=== PATIENT | female | born 1995 | race African-American/Black ===

== ENCOUNTER 2025-02-20 20:11 | Emergency (ER) | payer OTHER, SELFPAY ==
[2025-02-20 20:35] VITALS: BP 119/66; PULSE 65; RESP 16; TEMP 36.2; O2SAT 100
[2025-02-20 21:18] LABS: Influenza A QL RT-PCR Negative (Negative); Influenza B QL RT-PCR Negative (Negative); RSV RNA, RT-PCR Negative (Negative); SARS-CoV-2 RNA PCR Negative (Negative)
[2025-02-20 21:41] VITALS: BP 125/68; PULSE 73; RESP 16; TEMP 36.7; O2SAT 100
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
--- OUTSIDE RECORDS SUMMARY | 2025-02-20 23:18 | XMS_ITS | Referral Summary ---
Author Organization [facility] [address] Address [address] [place] [address] Phone Care Team Providers Care Extruder Operator Name Role Phone Rossy Ley MD Unavailable Rossy Ley MD Primary Care Provide r Allergies No known active allergies Medications sulfamethoxazol e-trimethoprim (BACTRIM DS) 800-160 mg per tablet Take one tablet twice daily for 3 days 6 tablet 3 Active Additional Information Patient not taking.Reported on 02/17/2024 valACYclovir (VALTREX) 500 mg tablet Take 1 tablet (500 mg) by mouth twice daily for 3 days. 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 Overview (02/28/2017): Premature adrenarche Medical examinations/reports status 04/09/2013 Overview (02/28/2017): Health care maintenance Pneumonia 04/09/2013 Overview (02/28/2017): Pneumonia Myopia 06/13/2009 Overview (02/28/2017): Myopia Chest wall pain 09/22/2008 Overview (02/28/2017): Chest wall pain Immunizations Immunization Administration Dates Next Due DTP 03/14/1999, 8,04/12/1998,02/17 DTaP 12/24/2002, 9,06/14/1998,04/12,02/17/1998 HPV, Quadrivalent 12/29/2012,08/25/2012,06/24/20 12 Hep B, Adolescent or Pediatric 06/14/1998,1997,1997 HiB 06/14/1998,04/12/1998,02/17/1998 Hib (HbOC) 03/14/1999, 8,04/12/1998,02/17 IPV 12/24/2002, 9,04/12/1998,02/17 MMR 12/24/2002,12/20/1998 Meningococcal MCV4P (Menactra) 04/26/2015 Meningococcal Polysaccharide (Menomune) 09/03/2011 OPV 03/14/1999,04/12/1998,02/17/1998 Tdap 06/13/2009 Varicella 04/26/2015,12/20/1998 Social History Tobacco Use Types Packs/Day Years Used Date Smoking Tobacco: Never Smokeless Tobacco: Never Alcohol Use Standard Drinks/Week Comments No 0 (1 standard drink = 0.6 oz pur e alcohol) Comments No Sex and Gender Information Value Date Recorded Sex Assigned at Not on file Legal Sex Female 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 Gender Identity Female 02/08/2021 10:56 AM CDT Sexual Orientation Straight 02/08/2021 10 :56 AM CDT Occupation Industry Job Start Date Job End Date [place] Not on file Not on file Not on file Last Filed Vital Signs Vital Sign Reading Time Taken Comments Blood Pressure 118/72 07/12/2024 4:00 PM CDT Pulse 84 07/12/2024 4:00 PM CDT Temperature 37.1 C (98.8 F) 07/12/2024 4:00 PM CDT Respiratory Rate 18 07/12/2024 4:00 PM CDT Oxygen Saturation 98% 07/12/2024 4:00 PM CDT Inhaled Oxygen Concentration - - Weight 58.1 kg (128 lb) 07/12/2024 4:00 PM CDT Height 154.9 cm (5' 0.98 ) 04/08/2024 7:35 PM CD T Body Mass Index 24.2 04/08/2024 7:35 PM CDT Plan of Treatment Not on file Procedures Procedure Name Priority Date/Time Associated Diagnosis Comments PAP WITH REFLEX TO HIGH RISK HPV Routine 02/09/2022 11:01 AM CDT Screening for malignant neoplasm of the cervix from Last 3 Months or Most Recently Relevant to Health Maintenance Results * Pap with reflex to High Risk HPV (02/09/2022 11:01 AM CDT) Thin prep (Pap test) 02/09/2022 11:01 AM CDT 02/09/2022 11:01 AM CDT Narrative PATHOLOGY CH - 02/14/2022 2:49 PM CDT [facility] Department of Pathology [address] [place] [id number] Final Report Note to Patients: This report may contain a detailed description of human tissue sent by a health care provider to the laboratory for pathologic evaluation. The content of this report is essential for diagnosis and may provide important critical findings. This information may be unfamiliar to patients to review without a medical professional present. It is advised that the patient review this report in the presence of a health care provider who can answer questions and explain the details. Patient Name: AYE GARCIA Address: [address] [place] [address] Gender: F : 1995 (Age: 26) Service: Laboratory Location: Lab [facility] #: [id number] Patient Type: Aram Lab Taken: 02/09/2022 Received: 02/09/2022 Accessioned:: 02/12/2022 Reported: 02/14/2022 Physician(s): JORDAN Clark WHNP Diagnosis: Source of Specimen: Imaged Thinprep Pap Test w/ Reflex HPV - Lifeguard Cytologic Material Specimen Adequacy: - Satisfactory for evaluation; endocervical/transformation zone component present General Category: - Negative for intraepithelial lesion or malignancy Interpretation/Results: - Reactive/reparative cell changes LETI Horowitz(ASCP) Guerita Dean M.D. Report Electronically Reviewed and Signed Out By Guerita Dean M.D. 02/14/2022 14:49:59 Specimen(s) Received: A: Imaged Thinprep Pap Test w/ Reflex HPV - Lifeguard Cytologic Material Clinical History: Last Menstrual Period: 01/15/22 The Pap test is a screening test used to aid in the detection of cervical cancer and its precursors. It should not be the sole means by which malignant and premalignant lesions are diagnosed. Both false negative and false positive results may occur. It also has poor sensitivity for the detection of endometrial lesions and should not be used to evaluate suspected endometrial abnormalities. For these reasons it is most important to obtain Pap tests at regular intervals. The performance characteristics of some immunohistochemical stains, fluorescence in-situ hybridization tests and immunophenotyping by flow cytometry cited in this report (if any) were determined by the Surgical Pathology Department at [facility] as part of an ongoing senior quality control inspector program and in compliance with federally mandated regulations drawn from the Clinical Laboratory Improvement Act of 1988 (CLIA '88). Some of these tests rely on the use of analyte specific reagents and are subject to specific labeling requirements by the US Food and Drug Administration. Such diagnostic tests may only be performed in a facility that is certified by the Department of Health and Human Services as a high complexity laboratory under CLIA '88. The FDA has determined that such clearance or approval is not necessary. This test is used for clinical purposes. It should not be regarded as investigational or for research. Nevertheless, federal rules concerning the medical use of analyte specific reagents require that the following disclaimer be attached to the report: This test was developed and its performance characteristics determined by the Surgical Pathology Department [facility]. It has not been cleared or approved by the U. S. Food and Drug Administration. Angie Torres NP LAB CYTOLOGY ORDERABLES F inal Result PATHOLOGY [address] [place] [address] from Last 3 Months or Most Recently Relevant to Health Maintenance Insurance [employer] ACCESS [facility] CHOICE PLUS Care Teams Extruder Operator Relationship Specialty Start Date End Date Rossy Ley MD [address] [place] [address] PCP - General 06/07/18 Rossy Ley MD [address] [place] [address] Pit Steward Obstetrics and Gynecology 10/23/17
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
--- NOTE | 2025-02-21 00:53 | ED_ITS ---
HPI - Fever General Chief Complaint: Fever Stated Complaint: Fever, Vomiting, headache, chills Time Seen by Provider: 02/20/25 22:47 Source: patient Mode of arrival: ambulatory Limitations: no limitations History of Present Illness HPI Narrative: Patient is a 29-year-old female who presents the ED with report of headache, nausea, vomiting. Patient reports she began having nausea and headache on Saturday night. Symptoms have persisted over the last several days. She had multiple episodes of vomiting today, which prompted her presentation. She has remote history of migraines, states she has a migraine every couple weeks. Has not taken anything for pain today. Has never been hospitalized for migraines before. Endorses photophobia, phonophobia. Reported having a couple of days of a cough last week, but states this has since resolved. Reported low-grade fevers this morning. Reports some intermittent pain throughout her upper abdomen. Denies sick contacts. Related Data Allergies Allergy/AdvReac Type Severity Reaction Status Date / Time No Known Allergies Allergy Verified 02/20/25 21:42 Review of Systems 2 Review of Systems: All systems reviewed & are unremarkable except as noted in HPI. All systems reviewed & are unremarkable except as noted in HPI and below Exam 2 Narrative: GENERAL: Well appearing, well-nourished, non-toxic, in no acute distress. HEAD: Normocephalic, atraumatic. EYES: PERRL/EOMI, conjunctiva clear. No nystagmus. NECK: No meningeal signs. RESPIRATORY: Airway patent, respirations nonlabored. Clear to auscultation bilaterally, no rales, rhonchi, wheezing. CARDIOVASCULAR: Regular rate and rhythm without murmurs, rubs, or gallops. ABDOMINAL: Soft, very mild TTP in epigastric region, nondistended. Normoactive BS. MUSCULOSKELETAL: Moves all extremities. No gross deformities. SKIN: Warm, dry, normal color. NEURO: A&O X3. Speech clear. Cranial nerves II-XII grossly intact. Steady gait. No ataxic movements. No focal deficits. PSYCHIATRIC: Appropriate mood and affect. Normal interaction. Course Vital Signs Vital signs: Vital Signs Temperature 97.1 F L 02/20/25 20:35 Pulse Rate 65 02/20/25 20:35 Respiratory Rate 16 02/20/25 20:35 Blood Pressure 119/66 02/20/25 20:35 Pulse Oximetry 100 03/29/25 20:35 Oxygen Delivery Room Air 02/20/25 20:35 Temperature 98.1 F 02/20/25 21:41 Pulse Rate 75 02/21/25 02:16 Respiratory Rate 16 02/21/25 02:16 Blood Pressure 111/75 02/21/25 02:16 Pulse Oximetry 97 02/21/25 02:16 Oxygen Delivery Room Air 02/20/25 20:35 MDM - Fever MDM Narrative Medical decision making narrative: Presented to ED with several day history of nausea, vomiting, headache. History of migraines. Vital signs are stable upon arrival. Patient is in no acute distress. Afebrile here. Has not taken any antipyretics today. Did report fever this morning. Neurologically intact. Patient's headache was not sudden in onset or maximal in severity. There are no focal neurological deficits on exam. Subarachnoid hemorrhage is felt to be unlikely at this time. Neck is supple on evaluation without meningeal signs. Meningitis is felt to be unlikely. No traumatic history or signs of trauma on evaluation. No vision changes or ocular signs of acute glaucoma. Laboratory studies unremarkable. Viral swabs negative. Urine with nitrate positive, no other significant signs of infection, 2+ ketones. Discussed this with patient. She is not having any urinary complaints or signs/sx's of UTI. Will send for cx. Will defer tx for now. Patient was given a migraine cocktail in the ED. On re-evaluation, she is feeling significantly better. Headache is resolved. she feels ready for discharge home at this time. She was given Pepcid for upper abdominal pain. No evidence of surgical abdomen on repeat exam to suggest need for further imaging at this time. Headache is felt to be benign cephalgia and reasonable for further outpatient management. Advised patient to follow with PCP for further evaluation. Given reasons to return. Jackeline sent to pharmacy. Patient in agreement with plan. Discharged in stable condition. Medical Records Attestation: I reviewed the patient's medical records. Lab Data Attestation: I reviewed the patient's lab results. 02/21/25 01:11 02/21/25 01:11 Labs: Lab Results 02/20/25 02/21/25 02/21/25 Range/Units 20:38 01:11 01:42 WBC 5.7 (4.5-10.0) K/mm3 RBC 4.40 (4.2-5.4) M/mm3 Hgb 12.6 (12.0-15.0) g/dL Hct 38.4 (37.0-47.0) % MCV 87.3 (80-100) fl MCH 28.6 (26-34) pg MCHC 32.8 (32-36) g/dl RDW 14.4 (11.5-14.5) % Plt Count 330 (150-375) k/mm3 MPV 9.9 (7.4-10.4) fl Immature Gran % (Auto) 0.2 (0-0.5) % Neut % (Auto) 74.4 H (45.5-73.1) % Lymph % (Auto) 18.7 (18.3-44.2) % [place] % (Auto) 6.3 (2.6-8.5) % Eos % (Auto) 0.2 (0-4.4) % Baso % (Auto) 0.2 (0.2-1.2) % Lymph # (Auto) 1.06 (0.9-3.2) K/mm3 [place] # (Auto) 0.4 (0.1-0.6) K/mm3 Eos # (Auto) 0.0 (0-0.3) K/mm3 Baso # (Auto) 0.0 (0.0-0.1) K/mm3 Abs Immat Gran (auto) 0.01 (0.00-0.031) K/mm3 Absolute Neuts (auto) 4.2 (1.3-6.7) K/mm3 Absolute Nucleated RBC 0.000 (0.0-0.012) K/mm3 Nucleated RBC % 0.0 (0.0-0.2) % Sodium 138 (137-145) mmol/L Potassium 4.0 (3.4-5.0) mmol/L Chloride 101 (98-107) mmol/L Carbon Dioxide 24 (22-30) mmol/L Anion Gap 13 H (4-12) mmol/L BUN 9 (7-17) mg/dL Creatinine 0.60 L (0.7-1.0) mg/dL Estim Creat Clear Calc 90 ml/min Estimated GFR > 60 (59 - ) Glucose 100 (65-110) mg/dL Calcium 9.2 (8.4-10.2) mg/dL Total Bilirubin 0.5 (0.2-1.3) mg/dL AST 39 H (14-36) U/L ALT 35 (6-35) U/L Alkaline Phosphatase 46 (38-126) U/L Total Protein 8.0 (6.3-8.2) g/dL Albumin 4.6 (3.5-5.1) g/dL Urine Color Yellow (Yellow) Urine Appearance Cloudy H (Clear) Urine pH 6.5 (5.0-9.0) Ur Specific [place] 1.012 (1.001-1.035) Urine Protein Negative (Negative) mg/dL Urine Glucose (UA) Negative (Negative) mg/dL Urine Ketones 2+ H (Negative) mg/dL Ur Blood (Man) Negative (Negative) Urine Nitrate Positive H (Negative) Urine Bilirubin Negative (Negative) Urine Urobilinogen 0.2 (<2.0) mg/dL Leukocyte Esterase Rfl Negative (Negative) SCOTTIE/UL Urine RBC 0-2 (0-2) /hpf Urine WBC 0-5 (0-3) /hpf Ur Squamous Epith Cells None seen (Few) /hpf Urine Bacteria 4+ H /hpf Urine Casts 0-2 POC Urine HCG, Qual (Negative) Influenza A (RT-PCR) Negative (Negative) Influenza B (RT-PCR) Negative (Negative) RSV (RT-PCR) Negative (Negative) SARS-CoV-2 RNA (RT-PCR) Negative (Negative) 02/21/25 Range/Units 01:43 WBC (4.5-10.0) K/mm3 RBC (4.2-5.4) M/mm3 Hgb (12.0-15.0) g/dL Hct (37.0-47.0) % MCV (80-100) fl MCH (26-34) pg MCHC (32-36) g/dl RDW (11.5-14.5) % Plt Count (150-375) k/mm3 MPV (7.4-10.4) fl Immature Gran % (Auto) (0-0.5) % Neut % (Auto) (45.5-73.1) % Lymph % (Auto) (18.3-44.2) % [place] % (Auto) (2.6-8.5) % Eos % (Auto) (0-4.4) % Baso % (Auto) (0.2-1.2) % Lymph # (Auto) (0.9-3.2) K/mm3 [place] # (Auto) (0.1-0.6) K/mm3 Eos # (Auto) (0-0.3) K/mm3 Baso # (Auto) (0.0-0.1) K/mm3 Abs Immat Gran (auto) (0.00-0.031) K/mm3 Absolute Neuts (auto) (1.3-6.7) K/mm3 Absolute Nucleated RBC (0.0-0.012) K/mm3 Nucleated RBC % (0.0-0.2) % Sodium (137-145) mmol/L Potassium (3.4-5.0) mmol/L Chloride (98-107) mmol/L Carbon Dioxide (22-30) mmol/L Anion Gap (4-12) mmol/L BUN (7-17) mg/dL Creatinine (0.7-1.0) mg/dL Estim Creat Clear Calc ml/min Estimated GFR (59 - ) Glucose (65-110) mg/dL Calcium (8.4-10.2) mg/dL Total Bilirubin (0.2-1.3) mg/dL AST (14-36) U/L ALT (6-35) U/L Alkaline Phosphatase (38-126) U/L Total Protein (6.3-8.2) g/dL Albumin (3.5-5.1) g/dL Urine Color (Yellow) Urine Appearance (Clear) Urine pH (5.0-9.0) Ur Specific [place] (1.001-1.035) Urine Protein (Negative) mg/dL Urine Glucose (UA) (Negative) mg/dL Urine Ketones (Negative) mg/dL Ur Blood (Man) (Negative) Urine Nitrate (Negative) Urine Bilirubin (Negative) Urine Urobilinogen (<2.0) mg/dL Leukocyte Esterase Rfl (Negative) SCOTTIE/UL Urine RBC (0-2) /hpf Urine WBC (0-3) /hpf Ur Squamous Epith Cells (Few) /hpf Urine Bacteria /hpf Urine Casts POC Urine HCG, Qual Negative (Negative) Influenza A (RT-PCR) (Negative) Influenza B (RT-PCR) (Negative) RSV (RT-PCR) (Negative) SARS-CoV-2 RNA (RT-PCR) (Negative) Discharge Plan Discharge Clinical Impression: Migraine Qualifiers: Migraine type: unspecified Status migrainosus presence: without status migrainosus Intractability: not intractable Qualified Code(s): G43.909 - Migraine, unspecified, not intractable, without status migrainosus Nausea and vomiting Qualifiers: Vomiting type: unspecified Qualified Code(s): R11.2 - Nausea with vomiting, unspecified Patient Disposition: Home, Self-Care Condition: Stable Instructions: Antibiotic Form, Migraine Headache (ED), Acute Headache (ED), Acute Nausea and Vomiting (ED), Viral Syndrome (ED) Additional Instructions: Continue Tylenol and ibuprofen as needed for pain. Utilize Zofran as needed for further nausea. Stay well hydrated. Recommend low light/low stimulus environment, limiting screen time, getting plenty of rest. Follow-up with your primary care doctor for further evaluation if needed. Return to the ED if you experience worsening or severe symptoms, unable to keep down food or drink, persistent fevers, severe dizziness or lightheadedness, vision changes, passing out, or any other symptoms of concern. Patient Language: Cameroonian Prescriptions: New ondansetron 4 mg tablet,disintegrating 4 mg PO Q8H PRN (Reason: nausea and vomiting) Qty: 15 0RF Follow-up/Referrals: PHYSICIAN,[employer] [Primary Care Provider] - Nitesh Hoyos MD [Physician] - (PRIMARY CARE) Time of Disposition: 02:22
[2025-02-21] MEDS: SODIUM CHLORIDE 0.9% IV 1,000 ML 999 ML IV CONT ×2 (01:13→01:14)
[2025-02-21 01:15] LABS: Basophils Percent Auto 0.2 % (0.2-1.2); Eosinophils Percent Auto 0.2 % (0-4.4); Hematocrit 38.4 % (37.0-47.0); Hemoglobin 12.6 g/dL (12.0-15.0); Immature Granulocyte Absolute 0.01 K/mm3 (0.00-0.031); Immature Granulocyte Percent A 0.2 % (0-0.5); Lymphocytes Absolute Auto 1.06 K/mm3 (0.9-3.2); Lymphocytes Percent Auto 18.7 % (18.3-44.2); Mean Corpuscular HGB Conc 32.8 g/dl (32-36); Mean Corpuscular Hemoglobin 28.6 pg (26-34); Mean Corpuscular Volume 87.3 fl (80-100); Mean Platelet Volume 9.9 fl (7.4-10.4); Monocytes Absolute Auto 0.4 K/mm3 (0.1-0.6); Monocytes Percent Auto 6.3 % (2.6-8.5); Neutrophils Absolute Auto 4.2 K/mm3 (1.3-6.7); Neutrophils Percent Auto 74.4 % (45.5-73.1); Platelet Count Result 330 k/mm3 (150-375); Red Cell Distribution Width 14.4 % (11.5-14.5); White Blood Count 5.7 K/mm3 (4.5-10.0)
[2025-02-21] MEDS: METOCLOPRAMIDE HCL INJ 10 MG/2 ML VIAL IV PUSH (01:15)
[2025-02-21] MEDS: diphenhydrAMINE HCl INJ 50 MG/ML VIAL 25 MG IV PUSH (01:15)
[2025-02-21] MEDS: ACETAMINOPHEN 500 MG TABLET 1000 MG PO (01:15)
[2025-02-21 01:16] VITALS: BP 108/61; PULSE 66; RESP 18; O2SAT 100
[2025-02-21] MEDS: FAMOTIDINE 20 MG/2 ML VIAL IV PUSH (01:16)
[2025-02-21 01:28] LABS: Alanine Aminotransferase 35 U/L (6-35); Albumin Level 4.6 g/dL (3.5-5.1); Alkaline Phosphatase 46 U/L (38-126); Anion Gap 13 mmol/L (4-12); Aspartate Amino Transferase 39 U/L (14-36); Bilirubin,Total 0.5 mg/dL (0.2-1.3); Blood Urea Nitrogen 9 mg/dL (7-17); Calcium 9.2 mg/dL (8.4-10.2); Carbon Dioxide 24 mmol/L (22-30); Chloride 101 mmol/L (98-107); Estimated CRCL calculation 90 ml/min; Estimated Glomerular Filt Rate > 60; Glucose 100 mg/dL (65-110); Sodium 138 mmol/L (137-145)
[2025-02-21 01:45] LABS: BEDSIDEPREGUCG Negative (Negative)
[2025-02-21 01:51] LABS: Add Urine Microscopic? YES; Appearance Urine Cloudy (Clear); Bacteria Urine 4+ /hpf; Bilirubin Urine Negative (Negative); Blood Urine Negative (Negative); Color Urine Yellow (Yellow); Glucose Urine UA Negative (Negative); Ketones Urine 2+ mg/dL (Negative); Leukocyte Esterase Ur Negative LEU/UL (Negative); Nitrate Urine Positive (Negative); Non Pathogenic Casts 0-2; Protein Urine Negative (Negative); RBC Urine 0-2 /hpf (0-2); Specific Grav Ur 1.012 (1.001-1.035); Squamous Epithelial Cell Urine None Seen /hpf (Few); Urobilinogen Urine 0.2 mg/dL (<2.0); WBC Urine 0-5 /hpf (0-3); pH Urine 6.5 (5.0-9.0)
[2025-02-21 02:16] VITALS: BP 111/75; PULSE 75; RESP 16; O2SAT 97
== END 2025-02-21 02:41 | disposition home or self-care (01) ==
PROVIDERS: Emergency Medicine; Emergency Provider Physician Assistant
DX: G43.909 Migraine, unspecified, not intractable, without status migrainosus (principal); R11.2 Nausea with vomiting, unspecified; Z20.822 Contact with and (suspected) exposure to COVID-19
CPT/HCPCS: 36415; 80053; 81001; 81025; 85025; 87086; 87186; 87637; 96361; 96374; 96375; 99284; A9270; J1200; J2765; J7030